=== PATIENT | male | born 1985 | race Caucasian/White ===

== ENCOUNTER → 2016-09-13 07:55 | Outpatient (CLI) | payer OTHER | END | disposition home or self-care (01) | LOC: D.RAD 07:55 → D.MRI 09:00 → D.RAD 09:30 → D.MRI 10:00 | DX: M24.412 Recurrent dislocation, left shoulder (principal) ==

== ENCOUNTER 2016-10-08 05:33 | Day surgery (SDC) | payer OTHER ==
[~2016-10-08] VITALS: Ht 152.4 cm; Wt 81.6 kg
--- NOTE | ~2016-10-08 | OP ---
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 He said it has been happening for quite some time, more than he can remember. He had a MRI which confirmed a anterior inferior labral tear as well as a large Hill-Sachs lesion of the posterior humerus. Upon examination he was grossly unstable with his humeral head subluxing anteriorly quite easily. After discussing the procedure with the patient in the office and discussing risks and benefits he chose to go forth with the procedure. PREPROCEDURE DIAGNOSES: 1. Left shoulder instability. 2. Hill-Sachs lesion of the left humerus. POSTPROCEDURE DIAGNOSES: 1. Left shoulder instability. 2. Hill-Sachs lesion of the left humerus. SURGEON: Moises Crawford DO [employer] PA[employer]MENTS RECEIVED: Jane Lopez APN, this procedure could not have been performed without her. DESCRIPTION OF PROCEDURE: The patient received a block preoperatively and was taken to the operative suite. He was placed in the right lateral decubitus position and prepped and draped in sterile fashion. A timeout was performed and all parties agreed, and antibiotics of clindamycin were given to the patient. After timeout was performed we proceeded forth with the procedure. An 18 gauge spinal needle was introduced into the joint from a posterior portal and 16 milliliters of saline was introduced into the joint, insufflating the joint. At that time a 11 blade was then used to make the portal site for the posterior portal and the trocar was introduced into the shoulder joint. The anterior inferior portal was then established and the anterior superior portal was established. The pathology was noted. The large Hill-Sachs lesion on the posterior humerus as well as the absent anterior inferior labrum. At this time we then proceeded to do the Bankart repair and capsular shift anteriorly. Three suture tack anchors were placed and the capsular shift and labral repair of the anterior inferior labrum from the 6 o'clock position to proximally the 2 o'clock position was performed. At that time the shoulder still seemed to be subluxing and the Hill-Sachs lesions was addressed. The viewing camera was then changed through the anterior superior portal and the posterior portal was used to pass three anchors into the posterior humerus and the Hill-Sachs lesion sutures were then tied and the shoulder was seen to be stable. It did not sublux and was in good position in the glenohumeral joint. The portal sites were then closed using 3-0 Monocryl in inverted interrupted fashion. Steri-Strips, Adaptic, 4x4s and Tegaderm were then placed over the sites and the patient was placed in a shoulder sling with a pillow. He was awakened in the operating room in stable condition and taken to the Post Anesthesia Care Unit in stable condition. OPERATIVE REPORT [id number] MELISSA CARVALHO MICHAEL D, DO CC: [id number] DICTATION DATE: 10/08/16 1500 SVP: DM 10/11/16 1346 [facility] 10/08/16 [id number] [place] [address]
[2016-10-08] MEDS ORDERED: PROZAC40 MG PO (06:10)
[2016-10-08 06:16] VITALS: BP 120/78; Ht 152.4 cm; Wt 81.6 kg
[2016-10-08 06:53] LABS: HEMATOCRIT 43.3 % (42.0-54.0); MCH 31.9 pg (26.0-34.0); MCHC 34.6 g/dL (31.0-37.0); MCV 92.1 fL (80.0-100.0); MEAN PLATELET VOLUME 10.2 fL (7.4-10.4); RBC 4.7 10x6/uL (4.20-6.10); RDW 12.5 % (11.5-14.5); WBC 4.5 10x3/uL (4.8-10.8)
== END 2016-10-08 12:58 | disposition home or self-care (01) ==
LOC: D.OPS 05:33
PROVIDERS: Anesthesiology
DX: M25.312 Other instability, left shoulder (principal); M24.412 Recurrent dislocation, left shoulder; S42.295A Other nondisplaced fracture of upper end of left humerus, initial encounter for closed fracture; Z01.812 Encounter for preprocedural laboratory examination; X58.XXXA Exposure to other specified factors, initial encounter